=== PATIENT | male | born 1995 | race Caucasian/White ===

== ENCOUNTER 2021-11-24 13:09 | Emergency (ER) | payer MEDICAID ==
[~2021-11-24] VITALS: Ht 180.3 cm; Wt 99.0 kg
[2021-11-24 13:16] VITALS: BP 138/88
[2021-11-24] MEDS ORDERED: IBUPROFEN 400MG TABLET PO ONE (13:30)
== END 2021-11-24 14:30 | disposition left against medical advice (07) ==
LOC: ER 13:38
DX: M79.671 Pain in right foot (principal); M79.672 Pain in left foot
CPT/HCPCS: 99281